=== PATIENT | female | born 1970 | race Caucasian/White ===

== ENCOUNTER 2018-03-28 23:49 | Emergency (ER) | payer MEDICARE ==
--- NOTE | 2018-03-28 23:57 | ER Report ---
History and Physical Time Seen By MD: 23:57 Hx. of Stated Complaint: BLOOD WITH URINATION X4 DAYS. C/O PAIN WITH URINATION. HPI/ROS CHIEF COMPLAINT: Hematuria, burning with urination HISTORY OF PRESENT ILLNESS: 47-year-old female presents ambulatory to the ER complaining of 4 days of urinary burning and hematuria. Patient notes pain radiating to her right flank. She's had nausea but no vomiting. She notes no fever or chills. Patient notes lower abdominal pain 9/10 with radiation to lower back. Patient reports a history of many UTIs. Patient has many antibiotic allergies. She's been taking Pyridium and cranberry tablets last several days without improvement. REVIEW OF SYSTEMS: Respiratory: No cough, no dyspnea. Cardiovascular: No chest pain, no palpitations. Gastrointestinal: As above Musculoskeletal: No back pain. Allergies: Coded Allergies: Penicillins (Verified Allergy, Severe, 03/29/18) Sulfa (Sulfonamide Antibiotics) (Verified Allergy, Severe, 03/29/18) aripiprazole (Verified Allergy, Severe, 03/29/18) azithromycin (Verified Allergy, Severe, 03/29/18) benztropine (Verified Allergy, Severe, 03/29/18) cephalexin (Verified Allergy, Severe, 03/29/18) ciprofloxacin (Verified Allergy, Severe, 03/29/18) codeine (Verified Allergy, Severe, 03/29/18) erythromycin base (Verified Allergy, Severe, 03/29/18) escitalopram (Verified Allergy, Severe, 03/29/18) phenytoin (Verified Allergy, Severe, 03/29/18) pseudoephedrine (Verified Allergy, Severe, 03/29/18) tetracycline (Verified Allergy, Severe, 03/29/18) Home Meds Active Scripts Levofloxacin 500 Mg Tab (LEVAQUIN 500 MG TAB) 500 Mg Tablet, 500 MG PO DAILY for infection, #6 TAB Prov:YVETTE ELIZABETH DO 03/29/18 Reported Medications Meclizine Hcl (MECLIZINE HCL) 12.5 Mg Tablet, 25 MG PO BID 03/29/18 Aspirin (ASPIR 81) 81 Mg Tablet.dr, 81 MG PO QDAY, TAB 03/29/18 Tiotropium Burton (SPIRIVA) 18 Mcg/Cap Inh, 18 MCG INH, INH 03/29/18 Ropinirole Hcl (REQUIP) 1 Mg Tablet, 1 MG PO 03/29/18 Quetiapine Fumarate (SEROQUEL) 25 Mg Tablet, 25 MG PO 03/29/18 Zolpidem Tartrate (AMBIEN) 5 Mg Tablet, 1 TAB PO QHS, TAB 03/29/18 Montelukast Sodium (SINGULAIR) 10 Mg Tablet, 1 TAB PO QDAY, TAB 03/29/18 Prazosin Hcl (PRAZOSIN HCL) 1 Mg Capsule, 1 MG PO, CAPSULE 03/29/18 Diazepam (DIAZEPAM) 5 Mg Tablet, 5 MG PO QHS, #5 TAB 03/29/18 Bupropion Hcl (WELLBUTRIN XL) 150 Mg Tab.er.24h, 150 MG PO QDAY, TAB 03/29/18 Reviewed Nurses Notes: Yes Old Medical Records Reviewed: Yes Constitutional Vital Sign - Last 24 Hours 03/29/18 02:15 Pulse 101 B/P (MAP) 144/102 (116) Physical Exam General Appearance: The patient is alert, has no immediate need for airway protection and no current signs of toxicity.. Vital signs stable, afebrile HEENT: Pupils equal and round no injection. Oropharynx without redness or exudate, mucous. Membranes are moist Respiratory: Chest is non tender, lungs are clear to auscultation. Cardiac: regular rate and rhythm Gastrointestinal: Abdomen is soft and non tender, no masses, bowel sounds normal., Mild right CVA tenderness Musculoskeletal: Neck: Neck is supple and non tender. Extremities have full range of motion and are non tender. Skin: No rashes or lesions. DIFFERENTIAL DIAGNOSIS: After history and physical exam differential diagnosis was considered for abdominal pain in a female including but not limited to ovarian cyst, pelvic inflammatory disease, ovarian torsion, urinary tract infection, and appendicitis. Medical Decision Making Data Points Laboratory Hematology Test 03/29/18 00:00 Urine Color Yellow Urine Clarity Cloudy Urine pH 5.0 pH (4.8-9.5) Urine Specific Baxter 1.009 Urine Protein 100 mg/dL (NEGATIVE) Urine Glucose (UA) Negative mg/dL (NEGATIVE) Urine Ketones Negative mg/dL (NEGATIVE) Urine Blood Large (NEGATIVE) Urine Nitrite Negative (NEGATIVE) Urine Bilirubin Negative (NEGATIVE) Urine Urobilinogen Negative mg/dL (0.2-1.9) Urine Leukocyte Esterase Large (NEGATIVE) Urine RBC 42 /HPF (0-2/HPF) Urine WBC 901 /HPF (0-5/HPF) Urine WBC Clumps Many /HPF Urine Squamous Epithelial Cells Many /LPF (</=FEW) Urine Transitional Epithelial Cells Many /LPF (NONE-FEW) Urine Bacteria Few /HPF (NONE-FEW) Urine Mucus Few /HPF (NONE-FEW) Chemistry Test 03/29/18 00:00 Urine Color Yellow Urine Clarity Cloudy Urine pH 5.0 pH (4.8-9.5) Urine Specific Baxter 1.009 Urine Protein 100 mg/dL (NEGATIVE) Urine Glucose (UA) Negative mg/dL (NEGATIVE) Urine Ketones Negative mg/dL (NEGATIVE) Urine Blood Large (NEGATIVE) Urine Nitrite Negative (NEGATIVE) Urine Bilirubin Negative (NEGATIVE) Urine Urobilinogen Negative mg/dL (0.2-1.9) Urine Leukocyte Esterase Large (NEGATIVE) Urine RBC 42 /HPF (0-2/HPF) Urine WBC 901 /HPF (0-5/HPF) Urine WBC Clumps Many /HPF Urine Squamous Epithelial Cells Many /LPF (</=FEW) Urine Transitional Epithelial Cells Many /LPF (NONE-FEW) Urine Bacteria Few /HPF (NONE-FEW) Urine Mucus Few /HPF (NONE-FEW) Urinalysis Test 03/29/18 00:00 Urine Color Yellow Urine Clarity Cloudy Urine pH 5.0 pH (4.8-9.5) Urine Specific Baxter 1.009 Urine Protein 100 mg/dL (NEGATIVE) Urine Glucose (UA) Negative mg/dL (NEGATIVE) Urine Ketones Negative mg/dL (NEGATIVE) Urine Blood Large (NEGATIVE) Urine Nitrite Negative (NEGATIVE) Urine Bilirubin Negative (NEGATIVE) Urine Urobilinogen Negative mg/dL (0.2-1.9) Urine Leukocyte Esterase Large (NEGATIVE) Urine RBC 42 /HPF (0-2/HPF) Urine WBC 901 /HPF (0-5/HPF) Urine WBC Clumps Many /HPF Urine Squamous Epithelial Cells Many /LPF (</=FEW) Urine Transitional Epithelial Cells Many /LPF (NONE-FEW) Urine Bacteria Few /HPF (NONE-FEW) Urine Mucus Few /HPF (NONE-FEW) ED Course/Re-evaluation ED Course Patient was admitted to an examination room. H&P done. The differential diagnoses was considered. On clinical examination. Patient has gross hematuria. Urinalysis was sent off to the laboratory. Has gross infection with 900 white blood cells. A urinary cultures ordered. Patient was treated with Levaquin. She was given Zofran for nausea. She was given Percocet for pain. She was given Phenergan for continued nausea. Patient had continued agitation. She was given Ativan for her restlessness. She is very uncomfortable with her urinary tract infection. Patient was given a prescription for Levaquin for 6 more days. She has an allergy to NSAIDs. Her pain. Treatment options were limited. Patient advised to follow-up with primary care back in [place]. Upon returning home. Decision to Disposition Date: Mar 29, 2018 Decision to Disposition Time: 00:17 Depart Departure Latest Vital Signs Vital Signs Date Time Temp Pulse Resp B/P (MAP) Pulse Ox O2 Delivery O2 Flow Rate FiO2 03/29/18 02:15 101 144/102 (116) Impression: Primary Impression: Urinary tract infection Condition: Improved Disposition: HOME OR SELF-CARE New Scripts Levofloxacin 500 Mg Tab (LEVAQUIN 500 MG TAB) 500 Mg Tablet 500 MG PO DAILY for infection, #6 TAB Prov: YVETTE ELIZABETH DO 03/29/18 Patient Instructions: Urinary Tract Infection in Women (ED) Additional Instructions: Follow-up with your primary care doctor in 2-3 days if unimproved Problem Qualifiers Primary Impression: Urinary tract infection Urinary tract infection type: acute cystitis Hematuria presence: with hematuria Qualified Codes: N30.01 - Acute cystitis with hematuria YVETTE ELIZABETH DO Mar 28, 2018 23:57
[2018-03-29] MEDS ORDERED: LEVOFLOXACIN 500 MG TAB PO ONE (00:05)
[2018-03-29] MEDS ORDERED: PRAZ1CAP26 PO (00:07)
[2018-03-29] MEDS ORDERED: MECL12.5 PO (00:07)
[2018-03-29] MEDS ORDERED: QUET25TA30 PO (00:07)
[2018-03-29] MEDS ORDERED: ZOLP-1 PO (00:07)
[2018-03-29] MEDS ORDERED: ASPI-1471 PO (00:07)
[2018-03-29] MEDS ORDERED: ROPI1TAB35 PO (00:07)
[2018-03-29] MEDS ORDERED: DIAZ-308 PO (00:07)
[2018-03-29] MEDS ORDERED: MONT10TA PO (00:07)
[2018-03-29] MEDS ORDERED: BUPR-472 PO (00:07)
[2018-03-29] MEDS ORDERED: TIO18R INH (00:07)
[2018-03-29] MEDS ORDERED: ONDANSETRON 4 MG ODT TABDP SL ONE (00:10)
[2018-03-29] MEDS ORDERED: LEVO-85 PO (00:19)
[2018-03-29] MEDS ORDERED: PROMETHAZINE 25 MG/ML 1 ML AMP IM ONE (00:35)
[2018-03-29] MEDS ORDERED: LORazepam 1 MG TAB PO ONE (01:10)
[2018-03-29] MEDS ORDERED: oxyCODONE/ACETAMIN 5/325MG TH 2 TAB/BOTTLE PO ONE (02:10)
[2018-03-29 02:15] VITALS: BP 144/102
== END 2018-03-29 02:32 | disposition home or self-care (01) ==
LOC: ER 23:52
DX: N30.01 Acute cystitis with hematuria (principal)
CPT/HCPCS: 81001; 87077; 87088; 87186; 96372; 99283; A9270; J2550; Q0162; S0119